=== PATIENT | female | born 1990 | race Two or more races ===

== ENCOUNTER 2017-04-26 08:13 | Inpatient (IN) ==
[2017-04-26] MEDS ORDERED: ONDANSETRON 4 MG/2 ML VIAL IV PRN ×2 (08:28→18:43)
[2017-04-26] MEDS ORDERED: MEPERIDINE 50 MG/1 ML VIAL IV PRN (08:28)
[2017-04-26] MEDS: LACTATED RINGERS 1,000 ML IV SCH ×3 (08:45→16:55)
[2017-04-26 08:58] LABS: Basophils # 0.1 10*3/uL (0.0-0.2); Basophils % 0.6 % (0.0-0.8); Eosinophils # 0.1 10*3/uL (0.0-0.87); Hematocrit 39.9 VOL% (35.7-47.0); Hemoglobin 13.8 GM/DL (12.0-16.0); Immature Granulocytes % 0.9 %; Immature Granulocytes Absolute 0.08 #; Lymphocytes # 1.8 10*3/uL (1.4-4.0); Lymphocytes % 20.6 % (21.3-54.2); Mean Corpuscular HGB Conc 34.6 GM/DL (32-36); Mean Corpuscular Hemoglobin 30 PG (27-34); Mean Corpuscular Volume 87.7 FL (87-102); Mean Platelet Volume 11.6 FL (9.6-12.0); Monocytes # 0.6 10*3/uL (0.11-0.8); Monocytes % 6.4 % (1.7-12.7); Neutrophils # 6.2 10*3/uL (1.4-7.4); Neutrophils % 70.5 % (38.7-73.9); Platelet Count 151 T/CUMM (130-400); Red Blood Count 4.55 MC/CUMM (3.8-5.5); Red Cell Distribution Width 16.1 % (9.3-17.3); White Blood Count 8.8 T/CUMM (4-12)
[2017-04-26] MEDS ORDERED: AMPICILLIN INJ 2,000 MG in SODIUM CHLORIDE 0.9% 100 ML IV ONE (08:58)
[2017-04-26] MEDS ORDERED: OXYTOCIN/LR 20 UNIT/1,000 ML BAG IV SCH (09:00)
[2017-04-26] MEDS ORDERED: CITRIC ACID/SODIUM CITRATE 30 ML UDCUP PO ONE (09:07)
[2017-04-26] MEDS ORDERED: LACTATED RINGERS 1,000 ML IV ONE (09:07)
[2017-04-26] MEDS ORDERED: PROMETHAZINE 25 MG/1 ML VIAL IM ONE (09:07)
[2017-04-26] MEDS ORDERED: hydrOXYzine HCL 25 MG/1 ML VIAL IM PRN (09:07)
[2017-04-26] MEDS ORDERED: diphenhydrAMINE 50 MG/1 ML VIAL IV PRN ×2 (09:07)
[2017-04-26] MEDS ORDERED: FAMOTIDINE 20 MG/2 ML VIAL IV ONE (09:07)
[2017-04-26 09:22] LABS: Albumin 2.9 G/DL (3.4-5.0); Bilirubin,Total 0.4 MG/DL (0.2-1.0); Calcium 9.1 MG/DL (8.5-10.1); Osmolality,Calculated 277.5 MOS/KG (273-304); Potassium 4.1 MMOL/L (3.5-5.1); Total Protein 6.1 G/DL (6.4-8.3)
[2017-04-26] MEDS ORDERED: fentaNYL 2 MCG/ROPIV 0.2% EPID 150 ML EPIDURAL SCH (09:30)
[2017-04-26] MEDS ORDERED: AMPICILLIN INJ 1,000 MG in SODIUM CHLORIDE 0.9% 100 ML IV SCH (13:00)
[2017-04-26] MEDS: ePHEDrine 50 MG/ML AMP IV PRN ×2 (16:01→16:02)
[2017-04-26 17:08] LABS: Apearance,Urine Slightly Hazy (Clear); Bilirubin,Urine Negative (Negative); Blood, Urine Negative (Negative); Glucose,Urine (UA) Negative (Negative); Ketones,Urine 20 mg/dL (Negative); Mucus,Urine Occasional /LPF (Occasional); Nitrite,Urine Negative (Negative); Protein,Urine Negative; RBC,Urine 2 /HPF (0-4); Squamous Epithelial Cell,Urine Occasional /HPF (0-10); Urine Color Yellow (Yellow); Urine Specific Gravity 1.018 (1.001-1.035); Urine Urobilinogen < 2.0 EU/DL (0.2-1.0); WBC,Urine <1 /HPF (0-6)
[2017-04-26] MEDS ORDERED: miSOPROStol 200 MCG TABLET ONE (17:30)
[2017-04-26] MEDS ORDERED: LIDOCAINE 1% 50 ML VIAL ONE (17:30)
[2017-04-26] MEDS ORDERED: METHYLERGONOVINE 0.2 MG/1 ML AMP ONE (17:30)
[2017-04-26] MEDS ORDERED: RHO(D) IMMUNE GLOBULIN 300 MCG SYRINGE IM ONE (18:43)
[2017-04-26] MEDS ORDERED: BENZOCAINE 20%/MENTHOL 0.5% SPRAY 56 GM CAN TOP PRN (18:43)
[2017-04-26] MEDS ORDERED: MEASLES/MUMPS/RUBELLA VACCINE 0.5 ML VIAL SUBCUT ONE (18:43)
[2017-04-26] MEDS ORDERED: WITCH HAZEL PADS 100/JAR TOP PRN (18:43)
[2017-04-26] MEDS ORDERED: oxyCODONE/ACETAMINOPHEN 5-325 MG TABLET PO PRN (18:43)
[2017-04-26] MEDS ORDERED: LANOLIN 50% CREAM 0.3 OZ TUBE TOP PRN (18:43)
[2017-04-26] MEDS ORDERED: OXYTOCIN/LR 20 UNIT/1,000 ML BAG IV ONE (18:43)
[2017-04-26] MEDS ORDERED: DIPH/TET/ACEL PERT BOOSTER VACCINE 0.5 ML VIAL IM ONE (18:43)
[2017-04-26] MEDS ORDERED: ACETAMINOPHEN 325 MG TABLET PO PRN (18:43)
[2017-04-26] MEDS ORDERED: HYDROCORTISONE 2.5% RECTAL CREAM 30 GM TUBE TOP PRN (18:43)
[2017-04-26] MEDS ORDERED: BISACODYL 10 MG SUPP RECTAL PRN (18:43)
[2017-04-26] MEDS: DOCUSATE SODIUM 100 MG CAPSULE PO SCH (22:02)
[2017-04-26] MEDS: IBUPROFEN 800 MG TABLET PO PRN (22:31)
[2017-04-26] MEDS: oxyCODONE/ACETAMINOPHEN 5-325 MG TABLET PO PRN (22:32)
[2017-04-27 05:06] LABS: Basophils # 0.1 10*3/uL (0.0-0.2); Basophils % 0.4 % (0.0-0.8); Eosinophils % 0.3 % (0.00-10.9); Hematocrit 38.8 VOL% (35.7-47.0); Hemoglobin 13.4 GM/DL (12.0-16.0); Immature Granulocytes % 0.6 %; Immature Granulocytes Absolute 0.08 #; Lymphocytes # 2.4 10*3/uL (1.4-4.0); Lymphocytes % 17.7 % (21.3-54.2); Mean Corpuscular HGB Conc 34.5 GM/DL (32-36); Mean Corpuscular Hemoglobin 31 PG (27-34); Mean Corpuscular Volume 88.8 FL (87-102); Mean Platelet Volume 11.5 FL (9.6-12.0); Monocytes # 1.1 10*3/uL (0.11-0.8); Monocytes % 8.3 % (1.7-12.7); Neutrophils # 9.9 10*3/uL (1.4-7.4); Neutrophils % 72.7 % (38.7-73.9); Platelet Count 134 T/CUMM (130-400); Red Blood Count 4.37 MC/CUMM (3.8-5.5); White Blood Count 13.6 T/CUMM (4-12)
[2017-04-27] MEDS: IBUPROFEN 800 MG TABLET PO PRN ×3 (06:00→21:05)
[2017-04-27] MEDS: oxyCODONE/ACETAMINOPHEN 5-325 MG TABLET PO PRN (06:00)
[2017-04-27] MEDS: DOCUSATE SODIUM 100 MG CAPSULE PO SCH ×2 (08:57→20:02)
[2017-04-28 09:00] VITALS: BP 124/73
[2017-04-28] MEDS: DOCUSATE SODIUM 100 MG CAPSULE PO SCH (09:17)
== END 2017-04-28 13:20 | disposition home or self-care (01) | DRG 560 ==
LOC: N.LDOUT 08:13 → N.LD 08:17 → N.OB 21:15
PROVIDERS: ADMIT Obstetrics & Gynecology; ATTEND Obstetrics & Gynecology

== ENCOUNTER 2020-03-03 06:29 | Inpatient (IN) ==
[2020-03-03] MEDS ORDERED: LACTATED RINGERS 1,000 ML IV SCH (07:20)
[2020-03-03] MEDS ORDERED: ONDANSETRON 4 MG/2 ML VIAL IV PRN (07:37)
[2020-03-03] MEDS ORDERED: MEPERIDINE 50 MG/1 ML VIAL IV PRN (07:47)
[2020-03-03] MEDS ORDERED: BUTORPHANOL 2 MG/ML VIAL IV PRN (07:47)
[2020-03-03] MEDS ORDERED: AMPICILLIN INJ 2,000 MG in SODIUM CHLORIDE 0.9% 100 ML IV ONE (08:07)
[2020-03-03] MEDS: OXYTOCIN/LR 20 UNIT/1,000 ML BAG IV SCH ×2 (08:28→18:21)
[2020-03-03 08:47] LABS: Basophils % 0.4 % (0.0-0.8); Eosinophils # 0.2 10*3/uL (0.0-0.87); Hematocrit 34.5 VOL% (35.7-47.0); Hemoglobin 10.9 GM/DL (12.0-16.0); Immature Granulocytes % 2.3 %; Lymphocytes # 1.6 10*3/uL (1.4-4.0); Lymphocytes % 19.1 % (21.3-54.2); Mean Corpuscular HGB Conc 31.6 GM/DL (32-36); Mean Corpuscular Volume 84.6 FL (87-102); Mean Platelet Volume 11.4 FL (9.6-12.0); Monocytes % 6.8 % (1.7-12.7); Neutrophils % 69.4 % (38.7-73.9); Platelet Count 158 T/CUMM (130-400); Red Blood Count 4.08 MC/CUMM (3.8-5.5); Red Cell Distribution Width 15.2 % (9.3-17.3); White Blood Count 8.5 T/CUMM (4-12)
[2020-03-03] MEDS ORDERED: ePHEDrine 50 MG/ML VIAL IV PRN (11:15)
[2020-03-03] MEDS ORDERED: NALOXONE 0.4 MG/ML VIAL IV PRN (11:15)
[2020-03-03] MEDS ORDERED: CITRIC ACID/SODIUM CITRATE 30 ML UDCUP PO ONE (11:15)
[2020-03-03] MEDS ORDERED: LACTATED RINGERS 1,000 ML IV ONE (11:15)
[2020-03-03] MEDS ORDERED: FAMOTIDINE 20 MG/2 ML VIAL IV ONE (11:15)
[2020-03-03] MEDS ORDERED: diphenhydrAMINE 50 MG/1 ML VIAL IV PRN ×2 (11:15)
[2020-03-03] MEDS ORDERED: fentaNYL 2 MCG/ROPIV 0.2% EPID 100 ML EPIDURAL SCH (11:30)
[2020-03-03] MEDS ORDERED: miSOPROStoL 200 MCG TABLET ONE (12:25)
[2020-03-03] MEDS ORDERED: TRANEXAMIC ACID 1,000 MG/10 ML VIAL ONE (12:25)
[2020-03-03] MEDS ORDERED: SODIUM CHLORIDE 0.9% 0 ML IV ONE (12:26)
[2020-03-03] MEDS ORDERED: CARBOPROST TROMETHAMINE 250 MCG/ML AMP IM ONE (12:26)
[2020-03-03] MEDS ORDERED: METHYLERGONOVINE 0.2 MG/1 ML AMP ONE (12:26)
[2020-03-03] MEDS ORDERED: AMPICILLIN INJ 1,000 MG in SODIUM CHLORIDE 0.9% 100 ML IV SCH (12:30)
[2020-03-03] MEDS ORDERED: LIDOCAINE 1% 50 ML VIAL ONE (12:45)
[2020-03-03 12:53] LABS: Cord Arterial Blood HCO3 19.5 MMOL/L
[2020-03-03 12:54] LABS: Cord Venous Blood HCO3 20.8 MMOL/L; Cord Venous Blood PCO2 38.3 MMHG; Cord Venous Blood PO2 30.3 MMHG
[2020-03-03] MEDS ORDERED: BENZOCAINE 20%/MENTHOL 0.5% SPRAY 56 GM CAN TOP PRN (18:45)
[2020-03-03] MEDS ORDERED: IBUPROFEN 800 MG TABLET PO PRN (18:49)
[2020-03-03] MEDS ORDERED: oxyCODONE/ACETAMINOPHEN 5-325 MG TABLET PO PRN (18:50)
[2020-03-03] MEDS: oxyCODONE/ACETAMINOPHEN 5-325 MG TABLET PO PRN (19:53)
[2020-03-04 05:59] LABS: Basophils # 0.1 10*3/uL (0.0-0.2); Basophils % 0.3 % (0.0-0.8); Eosinophils # 0.3 10*3/uL (0.0-0.87); Hematocrit 32.2 VOL% (35.7-47.0); Hemoglobin 10.5 GM/DL (12.0-16.0); Immature Granulocytes % 0.8 %; Immature Granulocytes Absolute 0.12 #; Lymphocytes # 2.7 10*3/uL (1.4-4.0); Lymphocytes % 18.5 % (21.3-54.2); Mean Corpuscular HGB Conc 32.6 GM/DL (32-36); Mean Corpuscular Volume 82.1 FL (87-102); Mean Platelet Volume 11.1 FL (9.6-12.0); Monocytes % 5.9 % (1.7-12.7); Neutrophils % 72.5 % (38.7-73.9); Platelet Count 154 T/CUMM (130-400); Red Blood Count 3.92 MC/CUMM (3.8-5.5); Red Cell Distribution Width 15.4 % (9.3-17.3); White Blood Count 14.8 T/CUMM (4-12)
[2020-03-04] MEDS ORDERED: DOCUSATE SODIUM 100 MG CAPSULE PO PRN (07:30)
[2020-03-04] MEDS: oxyCODONE/ACETAMINOPHEN 5-325 MG TABLET PO PRN (08:19)
[2020-03-04 11:43] VITALS: BP 114/65
== END 2020-03-04 15:10 | disposition home or self-care (01) | DRG 560 ==
LOC: N.LD 06:29 → N.OB 18:27
PROVIDERS: ADMIT Obstetrics & Gynecology; ATTEND Obstetrics & Gynecology

== ENCOUNTER 2022-02-24 07:59 | Inpatient (IN) ==
[2022-02-24] MEDS ORDERED: METHYLERGONOVINE 0.2 MG/1 ML AMP IM PRN (08:12)
[2022-02-24] MEDS ORDERED: TRANEXAMIC ACID 1,000 MG in SODIUM CHLORIDE 0.9% 100 ML IV PRN (08:12)
[2022-02-24] MEDS ORDERED: ONDANSETRON 4 MG/2 ML VIAL IV PRN ×2 (08:12→09:00)
[2022-02-24] MEDS ORDERED: OXYTOCIN/LR 20 UNIT/1,000 ML BAG IV ONE ×2 (08:12→09:00)
[2022-02-24] MEDS ORDERED: CARBOPROST TROMETHAMINE 250 MCG/ML AMP IM PRN (08:12)
[2022-02-24] MEDS ORDERED: miSOPROStoL 200 MCG TABLET RECTAL PRN (08:12)
[2022-02-24 08:15] LABS: Cord Arterial Blood HCO3 20.7 MMOL/L
[2022-02-24 08:18] LABS: Cord Venous Blood HCO3 22.2 MMOL/L; Cord Venous Blood PCO2 23.2 MMHG; Cord Venous Blood PO2 32.1
[2022-02-24] MEDS ORDERED: LACTATED RINGERS 1,000 ML IV SCH (08:30)
[2022-02-24] MEDS ORDERED: BENZOCAINE 20%/MENTHOL 0.5% SPRAY 56 GM CAN TOP PRN (09:00)
[2022-02-24] MEDS ORDERED: RHO(D) IMMUNE GLOBULIN 300 MCG SYRINGE IM ONE (09:00)
[2022-02-24] MEDS ORDERED: oxyCODONE/ACETAMINOPHEN 5-325 MG TABLET PO PRN ×2 (09:00)
[2022-02-24] MEDS ORDERED: MEASLES/MUMPS/RUBELLA VACCINE 0.5 ML VIAL SUBCUT ONE (09:00)
[2022-02-24] MEDS ORDERED: WITCH HAZEL PADS 100/JAR TOP PRN (09:00)
[2022-02-24] MEDS ORDERED: DIPH/TET/ACEL PERT BOOSTER VACCINE 0.5 ML VIAL IM ONE (09:00)
[2022-02-24] MEDS ORDERED: ACETAMINOPHEN 325 MG TABLET PO PRN (09:00)
[2022-02-24] MEDS ORDERED: LANOLIN 50% CREAM 0.3 OZ TUBE TOP PRN (09:00)
[2022-02-24] MEDS ORDERED: BISACODYL 10 MG SUPP RECTAL PRN (09:00)
[2022-02-24] MEDS ORDERED: HYDROCORTISONE 2.5% RECTAL CREAM 30 GM TUBE TOP PRN (09:00)
[2022-02-24 09:39] LABS: Basophils % 0.3 % (0.0-0.8); Eosinophils % 0.1 % (0.00-10.9); Hemoglobin 11.1 GM/DL (12.0-16.0); Immature Granulocytes % 0.7 %; Immature Granulocytes Absolute 0.11 #; Lymphocytes % 6.2 % (21.3-54.2); Mean Corpuscular HGB Conc 30.8 GM/DL (32-36); Mean Corpuscular Volume 77.6 FL (87-102); Mean Platelet Volume 11.3 FL (9.6-12.0); Monocytes # 0.5 10*3/uL (0.11-0.8); Monocytes % 3.4 % (1.7-12.7); Neutrophils % 89.3 % (38.7-73.9); Platelet Count 191 T/CUMM (130-400); Red Blood Count 4.64 MC/CUMM (3.8-5.5); Red Cell Distribution Width 15.5 % (9.3-17.3); White Blood Count 15.7 T/CUMM (4-12)
[2022-02-24] MEDS: IBUPROFEN 800 MG TABLET PO PRN (12:23)
[2022-02-24] MEDS ORDERED: SIMETHICONE CHEW 125 MG TABLET PO PRN (14:54)
[2022-02-24] MEDS: SIMETHICONE CHEW 80 MG TABLET PO PRN (15:24)
[2022-02-24] MEDS: DOCUSATE SODIUM 100 MG CAPSULE PO SCH (21:25)
[2022-02-25] MEDS: IBUPROFEN 800 MG TABLET PO PRN ×3 (01:34→19:27)
[2022-02-25 05:46] LABS: Basophils % 0.3 % (0.0-0.8); Eosinophils # 0.1 10*3/uL (0.0-0.87); Eosinophils % 1.1 % (0.00-10.9); Hematocrit 30.7 VOL% (35.7-47.0); Hemoglobin 9.5 GM/DL (12.0-16.0); Immature Granulocytes % 0.8 %; Immature Granulocytes Absolute 0.09 #; Lymphocytes # 2.5 10*3/uL (1.4-4.0); Lymphocytes % 21.6 % (21.3-54.2); Mean Corpuscular HGB Conc 30.9 GM/DL (32-36); Mean Corpuscular Volume 78.3 FL (87-102); Mean Platelet Volume 11.9 FL (9.6-12.0); Monocytes # 0.6 10*3/uL (0.11-0.8); Monocytes % 5.5 % (1.7-12.7); Neutrophils % 70.7 % (38.7-73.9); Platelet Count 173 T/CUMM (130-400); Red Blood Count 3.92 MC/CUMM (3.8-5.5); Red Cell Distribution Width 15.7 % (9.3-17.3); White Blood Count 11.7 T/CUMM (4-12)
[2022-02-25] MEDS: MULTIVITAMIN (PRENATAL) TABLET PO SCH (08:24)
[2022-02-25] MEDS: DOCUSATE SODIUM 100 MG CAPSULE PO SCH (08:24)
[2022-02-25] MEDS: SIMETHICONE CHEW 80 MG TABLET PO PRN (19:25)
[2022-02-26] MEDS: DOCUSATE SODIUM 100 MG CAPSULE PO SCH ×2 (03:37→09:07)
[2022-02-26] MEDS: MULTIVITAMIN (PRENATAL) TABLET PO SCH (09:07)
[2022-02-26 19:32] VITALS: BP 110/68
== END 2022-02-26 14:45 | disposition home or self-care (01) | DRG 560 ==
LOC: N.LD 07:59 → N.OB 10:49
PROVIDERS: ADMIT Obstetrics & Gynecology; ATTEND Obstetrics & Gynecology